=== PATIENT | female | born 1965 | race Two or more races ===

== ENCOUNTER 2022-01-07 17:37 | Inpatient (IN) | payer BC, OTHER ==
[~2022-01-07] VITALS: Ht 152.4 cm; Wt 74.0 kg
[2022-01-07] MEDS ORDERED: ASPirin 325 MG TAB PO ONE (18:30)
[2022-01-07] MEDS ORDERED: NITROGLYCERIN 0.4 MG SL TAB SL ONE (18:30)
[2022-01-07 18:47] LABS: Basophils # (auto) 0.2 10 ^3/uL (0-0.2); Basophils % (auto) 2.3 % (0.0-2.0); Eosinophils # (auto) 0.1 10 ^3/uL (0-0.8); Eosinophils % (auto) 1.8 % (0.0-7.0); Hematocrit 41.8 % (36.0-46.0); Hemoglobin 14.1 g/dL (12.2-16.2); Lymphocytes # (auto) 2.5 10 ^3/uL (0.4-5.4); Lymphocytes % (auto) 33.7 % (10.0-50.0); Mean Corpuscular Hemoglobin 29.9 pg (28.0-32.0); Mean Corpuscular Hgb Conc. 33.9 g/dL (32.0-36.0); Mean Corpuscular Volume 88.1 fL (80.0-100.0); Monocytes # (auto) 0.4 10 ^3/uL (0-1.3); Monocytes % (auto) 6.1 % (0.0-12.0); Neutrophils # (auto) 4.1 10 ^3/uL (1.6-8.6); Neutrophils % (auto) 56.1 % (37.0-80.0); Nucleated Red Blood Cells % 0.2 %; Red Blood Cells 4.74 10^6/uL (4.0-5.20); Red Cell Distribution Width 13.1 % (11.8-14.3); White Blood Cell 7.3 10^3/uL (4.4-10.8)
[2022-01-07 19:04] LABS: Albumin 3.9 g/dL (3.4-5.0); BUN/Creatinine Ratio 25.6; Potassium 3.9 mmol/L (3.5-5.1)
[2022-01-07 19:14] LABS: Bilirubin, Total 0.4 mg/dL (0.2-1.0); Total Protein 7.7 g/dL (6.4-8.2)
[2022-01-07] MEDS ORDERED: MORPHINE SULFATE INJECTION 2 MG/ML SYRG IV PRN (20:45)
[2022-01-07] MEDS ORDERED: NITROGLYCERIN 0.4 MG SL TAB SL PRN (20:45)
[2022-01-07] MEDS ORDERED: TEMAZEPAM 15 MG CAP PO PRN (20:45)
[2022-01-07] MEDS ORDERED: ACETAMINOPHEN 325 MG TAB PO PRN (20:45)
[2022-01-07] MEDS ORDERED: ONDANSETRON HCL 4 MG/2 ML VIAL IV PRN (20:45)
[2022-01-07 21:14] LABS: Cholesterol 230 mg/dL (< 200)
[2022-01-07 21:16] LABS: HDL Cholesterol 61 mg/dL (40-59); LDL Cholesterol 141 mg/dL (< 100); Triglycerides 114 mg/dL (< 150)
[2022-01-07] MEDS ORDERED: ATORVASTATIN 20 MG TAB PO SCH (22:00)
[2022-01-07 23:46] VITALS: BP 112/59
[2022-01-08 05:00] VITALS: BP 104/66
[2022-01-08 06:55] LABS: Calcium 8.9 mg/dL (8.5-10.1); Potassium 3.7 mmol/L (3.5-5.1)
[2022-01-08 09:20] VITALS: BP 107/69
[2022-01-08] MEDS ORDERED: ENOXAPARIN SOD 40 MG/0.4 ML SYRINGE SC SCH (10:00)
[2022-01-08] MEDS ORDERED: ASPirin 81 mg TAB PO SCH (10:00)
[2022-01-08] MEDS ORDERED: PANTOPRAZOLE 40 MG TAB PO SCH (10:00)
[2022-01-08 13:02] VITALS: BP 117/56
[2022-01-08] MEDS ORDERED: COLC1TAB3 PO (14:18)
[2022-01-08] MEDS ORDERED: PANT40T PO (14:18)
[2022-01-08 16:49] VITALS: BP 103/59
== END 2022-01-08 17:20 | disposition home or self-care (01) | DRG 313 ==
LOC: ER 17:37 → TELE 20:47 → TELE-WESTW 22:38
PROVIDERS: ADMIT Nurse Practitioner; ATTEND Internal Medicine
DX: R07.89 Other chest pain (principal); I20.0 Unstable angina; E66.9 Obesity, unspecified; E78.5 Hyperlipidemia, unspecified; Z90.710 Acquired absence of both cervix and uterus; Z20.822 Contact with and (suspected) exposure to COVID-19
CPT/HCPCS: 36415; 71046; 80048; 80053; 80061; 84443; 84484; 85025; 85379; 93005; 93306; G0378